=== PATIENT | female | born 1945 | race Caucasian/White ===

== ENCOUNTER → 2017-06-16 | Outpatient (CLI) | payer OTHER | LOC: FIMAGING 14:07 | PROVIDERS: ATTEND Internal Medicine | DX: Z12.31 Encounter for screening mammogram for malignant neoplasm of breast (principal); Z80.3 Family history of malignant neoplasm of breast | CPT/HCPCS: G0202 ==

== ENCOUNTER 2018-07-21 10:30 | Emergency (ER) | payer OTHER ==
[2018-07-21] MEDS ORDERED: NS 1,000 ML IV ONE (10:48)
[2018-07-21] MEDS ORDERED: ONDANSETRON 4 MG/2 ML VIAL IVP ONE (10:48)
--- NOTE | 2018-07-21 10:48 | EDPHY ---
H & P Stated Complaint: left upper quadrant pain Time Seen by Provider: 07/21/18 10:43 HPI/ROS: HPI: This is a 73-year-old female who presents with Chief Complaint: Left upper quadrant pain Location: Left upper quadrant/left flank Quality: Pain Duration: Since Thursday evening Signs and Symptoms: no fever, + nausea, no vomiting, no hematemesis, no blood in stool, no abdominal bloating, no diarrhea, no back pain, no urinary symptoms , no vaginal bleeding/discharge, no indigestion, no chest pain, no shortness of breath, no rash Timing: Acute, intermittent waves Severity: Moderate Context: Patient has a history of hypothyroidism and hypertension presents with sudden onset Thursday evening in the left upper quadrant left flank sharp cramping pain that came in waves over the last few days associated with nausea but no vomiting, no fever, no diarrhea, no abdominal bloating, no blood in urine , no dysuria, no indigestion, no chest pain, no shortness of breath. Patient reports that she has had decreased appetite and did not eat Thursday. She saw her primary care provider who performed a urine sample and did not show any blood per patient and told to eat a clear liquid diet/plan diet. She has no history of kidney stones. She does not drink alcohol regularly. She does have a history of mid and lower back discomfort and went to the [facility] on Thursday. She reports that this feels different than her prior episodes of back strain. She denies any radiation, weakness, paresthesias. Patient had a bowel movement this morning. Modifying Factors: None Comment: ROS: see HPI Constitutional: No fever, no chills, no weight loss Eyes: No blurred vision Respiratory: No shortness of breath, no cough Cardiovascular: No chest pain, no palpitations Gastrointestinal: + nausea, no vomiting, no diarrhea, no hematemesis, no blood in stool Genitourinary: No dysuria, no blood in urine Extremities: No myalgias, no edema Neurologic: No weakness, no numbness Skin: No rashes, no petechiae Hematologic: No bruising, no bleeding MEDICAL/SURGICAL/SOCIAL HISTORY: Medical history: Hypothyroidism, hypertension Surgical history: Cataracts Social history: Never smoked, , retired. Family history noncontributory. CONSTITUTIONAL: Extremely well-appearing elderly white female, awake and alert , no obvious distress HEENT: Atraumatic and normocephalic, PERRL, EOMI. Nares patent; no rhinorrhea; no nasal mucosal edema. Tympanic membranes clear. Oropharynx clear, no exudate and moist pink mucosa. Airway patent. No lymphadenopathy. No meningismus. Cardiovascular: Normal S1/S2, regular rate, regular rhythm, without murmur rub or gallop. PULMONARY/CHEST: Symmetrical and nontender. Clear to auscultation bilaterally. Good air movement. No accessory muscle usage. ABDOMEN: Soft, nondistended, left upper quadrant and left flank tenderness, no rebound, + guarding, no peritoneal signs, no masses or organomegaly. No CVAT. Bowel sounds heard x4 quadrants EXTREMITIES: 2/2 pulses, strength 5/5, no deformities, no clubbing, no cyanosis or edema. NEUROLOGICAL: no focal neuro deficits. GCS 15. SKIN: Warm and dry, no erythema. no rash. Good capillary refill. Source: Patient Exam Limitations: No limitations - Personal History Current Tetanus/Diphtheria Vaccine: Yes Current Tetanus Diphtheria and Acellular Pertussis (TDAP): Yes - Medical/Surgical History Hx Asthma: No Hx Chronic Respiratory Disease: No Hx Diabetes: No Hx Cardiac Disease: No Hx Renal Disease: No Hx Cirrhosis: No Hx Alcoholism: No Hx HIV/AIDS: No Hx Splenectomy or Spleen Trauma: No Other PMH: cataract surgery, HTN - Social History Smoking Status: Never smoked Constitutional: Initial Vital Signs Temperature (C) 36.5 C 07/21/18 10:36 Heart Rate 77 07/21/18 10:36 Respiratory Rate 18 07/21/18 10:36 Blood Pressure 166/87 H 07/21/18 10:36 O2 Sat (%) 97 07/21/18 10:36 O2 Delivery Mode Room Air Allergies/Adverse Reactions: No Known Allergies Allergy (Unverified 07/21/18 10:43) Home Medications: Medication Instructions Recorded Dicyclomine [Bentyl 10 MG (*)] 10 mg PO Q6 PRN #12 cap 07/21/18 HCTZ (*) 07/21/18 Ondansetron Odt [Zofran Odt 4 mg 4 mg PO Q4 PRN #12 tab 07/21/18 (*)] Synthroid 07/21/18 Medical Decision Making - Diagnostics EKG Interpretation: 12 lead EKG: Indication: Abdominal pain Rhythm: Normal sinus rhythm, rate of 71 beats per minute [place]: Normal [place]: Left anterior fascicular block QRS: Normal ST segments: Normal INTERPRETATION: No acute ischemic changes. The 12 lead EKG was interpreted by myself and with attending. Imaging Results: Imaging Impressions Abdomen/Pelvis CT 07/21/18 10:48 Impression: Subtly abnormal proximal jejunum and mesentery in the left upper quadrant. ? Enteritis vs adhesion vs subtle transmesenteric internal hernia. Results discussed with Shira Lewsi at 11:31 AM. General information for patients regarding this examination can be found at [email or web address]. If you have questions or comments about this report, please contact me at (hospital) or [phone] (cell). ED Course/Re-evaluation: Vital signs reviewed and stable upon arrival. No systemic signs. Give 1 L normal saline, IV morphine 6 mg and IV Zofran 4 mg Laboratory studies, urinalysis, CT abdomen and pelvis scan without contrast, EKG ordered EKG my read shows normal sinus rhythm the rate is 71 beats per minute with left anterior fascicular block. No acute ischemic changes. 1129: Labs reviewed. No signs of leukocytosis/anemia/platelet dysfunction/BRITTNEE/ elevated LFTs/electrolyte imbalance/pancreatitis. 1133: Called by radiologist, Dr. Rodriguez, who advised that CT abdomen and pelvis show very mild prominent loops in the small bowel with mild mesenteric edema consistent with mild enteritis or gastroenteritis. No stones, pancreatitis, bowel obstruction, perforation. Show degenerative changes in thoracic and lumbar spine could be contributing to her symptoms. Reassessed patient. Will treat conservatively with clear liquid diet, Bentyl, Zofran and PCP follow-up on Thursday. No indication for antibiotics at this time. Patient is not willing to wait for urine sample to be obtained as she had 1 performed yesterday and was normal per her. Patient understands that she is to return to the emergency room immediately if there is any worsening or concerning symptoms. This patient was seen under the supervision of my secondary supervising physician. I evaluated care for this patient independently. Discussed this patient with Dr. Angela. Differential Diagnosis: Flank pain including but not limited to musculoskeletal causes, kidney stone, pyelonephritis, shingles, and intra-abdominal causes such as diverticulitis and appendicitis. - Data Points Laboratory Results: Laboratory Results 07/21/18 10:56 07/21/18 10:56 07/21/18 07/21/18 10:56 10:56 WBC 7.55 10^3/uL 10^3/uL (3.80-9.50) RBC 5.55 10^6/uL H 10^6/uL (4.18-5.33) Hgb 15.9 g/dL g/dL (12.6-16.3) Hct 45.9 % % (38.0-47.0) MCV 82.7 fL fL (81.5-99.8) MCH 28.6 pg pg (27.9-34.1) MCHC 34.6 g/dL g/dL (32.4-36.7) RDW 13.2 % % (11.5-15.2) Plt Count 277 10^3/uL 10^3/uL (150-400) MPV 11.0 fL fL (8.7-11.7) Neut % (Auto) 68.4 % % (39.3-74.2) Lymph % (Auto) 21.7 % % (15.0-45.0) [place] % (Auto) 7.3 % % (4.5-13.0) Eos % (Auto) 1.6 % % (0.6-7.6) Baso % (Auto) 0.9 % % (0.3-1.7) Nucleat RBC Rel Count 0.0 % % (0.0-0.2) Absolute Neuts (auto) 5.16 10^3/uL 10^3/uL (1.70-6.50) Absolute Lymphs (auto) 1.64 10^3/uL 10^3/uL (1.00-3.00) Absolute Monos (auto) 0.55 10^3/uL 10^3/uL (0.30-0.80) Absolute Eos (auto) 0.12 10^3/uL 10^3/uL (0.03-0.40) Absolute Basos (auto) 0.07 10^3/uL 10^3/uL (0.02-0.10) Absolute Nucleated RBC 0.00 10^3/uL 10^3/uL (0-0.01) Immature Gran % 0.1 % % (0.0-1.1) Immature Gran # 0.01 10^3/uL 10^3/uL (0.00-0.10) Sodium 135 mEq/L mEq/L (135-145) Potassium 3.7 mEq/L mEq/L (3.3-5.0) Chloride 97 mEq/L mEq/L (97-110) Carbon Dioxide 25 mEq/l mEq/l (22-31) Anion Gap 13 mEq/L mEq/L (8-16) BUN 12 mg/dL mg/dL (7-23) Creatinine 0.9 mg/dL mg/dL (0.6-1.0) Estimated GFR > 60 Glucose 95 mg/dL mg/dL (70-100) Calcium 9.9 mg/dL mg/dL (8.5-10.4) Total Bilirubin 1.0 mg/dL mg/dL (0.1-1.4) Conjugated Bilirubin 0.0 mg/dL mg/dL (0.0-0.5) Unconjugated Bilirubin 1.0 mg/dL mg/dL (0.0-1.1) AST 26 IU/L IU/L (14-46) ALT 32 IU/L IU/L (9-52) Alkaline Phosphatase 74 IU/L IU/L (38-126) Total Protein 8.4 g/dL H g/dL (6.3-8.2) Albumin 4.7 g/dL g/dL (3.5-5.0) Lipase 56 IU/L IU/L (23-300) Medications Given: Discontinued Medications Sodium Chloride (Ns) 1,000 mls @ 0 mls/hr IV EDNOW ONE; Wide Open PRN Reason: Protocol Stop: 07/21/18 10:49 Last Admin: 07/21/18 11:01 Dose: 1,000 mls Morphine Sulfate (Morphine) 6 mg IVP EDNOW ONE Stop: 07/21/18 10:49 Last Admin: 07/21/18 11:03 Dose: 6 mg Ondansetron HCl (Zofran) 4 mg IVP EDNOW ONE Stop: 07/21/18 10:49 Last Admin: 07/21/18 11:02 Dose: 4 mg Departure - Departure Disposition: Home, Routine, Self-Care Clinical Impression: Enteritis, Degenerative disc disease, thoracic, Degenerative lumbar disc Condition: Good Instructions: Degenerative Disc Disease (ED), Enteritis (ED) Additional Instructions: Consume a minimum of 8-10 glasses of water or electrolyte fluid replacement drinks that include Gatorade, Powerade, Pedialyte. Eat a bland diet for the next 48 hours and then slowly advance as tolerated. Take Zofran 1 tab every 4 hours as needed for nausea, vomiting. Take Bentyl every 4-6 hours as needed for GI distress. Follow-up with primary care provider on Thursday for re-evaluation. Take Tylenol 650 mg every 4 hours and/or Ibuprofen 600 mg every 8 hours with food as needed for pain. Return to the Emergency Room if symptoms do not resolve in the next 48-72 hours , you spike a fever > 102 F, or experience intractable abdominal pain/nausea/ vomiting. Referrals: Letha Campbell MD [Primary Care Provider] - 07/26/18 Prescriptions: Dicyclomine [Bentyl 10 MG (*)] 10 mg PO Q6 PRN #12 cap PRN Reason: Gi Distress Ondansetron Odt [Zofran Odt 4 mg (*)] 4 mg PO Q4 PRN #12 tab PRN Reason: Nausea/Vomiting, Use 1st
[2018-07-21 11:08] LABS: PLATELET COUNT 277 10^3/uL (150-400)
[2018-07-21 11:51] VITALS: BP 158/68
--- NOTE | 2018-07-22 12:18 | CPEKG ---
Test Reason : OPEN Blood Pressure : / mmHG Vent. Rate : 071 BPM Atrial Rate : 071 BPM P-R Int : 150 ms QRS Dur : 097 ms QT Int : 417 ms P-R-T Axes : 069 -57 065 degrees QTc Int : 454 ms Sinus rhythm Probable left atrial enlargement Left anterior fascicular block Confirmed by Eunice Angela ([id number]) on 07/22/2018 12:18:03 PM Referred By: Confirmed By:Eunice Angela
== END 2018-07-21 11:52 | disposition home or self-care (01) ==
DX: K52.9 Noninfective gastroenteritis and colitis, unspecified (principal); M51.34 Other intervertebral disc degeneration, thoracic region; M51.36 Other intervertebral disc degeneration, lumbar region; E86.9 Volume depletion, unspecified; E03.9 Hypothyroidism, unspecified; I10 Essential (primary) hypertension
CPT/HCPCS: 74176; 93005; 96361; 96374; 96375; 99285; J2270; J2405